=== PATIENT | male | born 1940 | race Caucasian/White ===

== ENCOUNTER 2016-11-14 08:43 | Day surgery (SDC) | payer MEDICARE ==
[~2016-11-14] VITALS: Ht 182.9 cm; Wt 73.9 kg
[~2016-11-14 08:43] MED LIST: AMLO5 PO; ASPI81TA82 PO; ATOR20TA PO; CALC667T PO; COMMODE 3:1; DOCU1CAP39 PO; NEUR100C PO; PHENYLEPH/NS 1000 MCG/10 ML SYR IV ONE; PROPOFOL 200 MG/20 ML AMP IV ONE; SHOWER/TUB CHAIR LG; SODIUM CHLOR 0.9% 250 ML INJ 500 ML IV ONE; TAMS0.4C67 PO; TRAZ100 PO; TRIPCAP PO; WALKER ROLLING; WHEELCHAIR RENTAL RA; Z.0.WALKERFRONT; [UNRECOGNIZED DRUG - SUPPLY]; ePHEDrine/NS 50 MG/5 ML SYR IV ONE
[2016-11-14] MEDS ORDERED: ATOR20TA15 PO (09:57)
[2016-11-14] MEDS ORDERED: TRIPCAP PO (09:57)
[2016-11-14] MEDS ORDERED: TRAZ100T4 PO (09:57)
[2016-11-14] MEDS ORDERED: ASPI1TAB69 PO (10:00)
[2016-11-14] MEDS ORDERED: GABA100C4 PO (10:00)
[2016-11-14] MEDS ORDERED: DOCU100C PO (10:00)
[2016-11-14] MEDS ORDERED: PHOS667C5 PO (10:00)
[2016-11-14] MEDS ORDERED: BENA25TA3 PO (10:00)
[2016-11-14 10:08] VITALS: BP 112/68; PULSE 64; RESP 20; TEMP 98; O2SAT 99
[2016-11-14] MEDS ORDERED: SODIUM CHLORIDE 0.9% INJ 100 ML ONE (10:33)
[2016-11-14] MEDS ORDERED: ceFAZolin INJ 1,000 MG VIAL ONE (10:33)
[2016-11-14] MEDS ORDERED: INSULIN HUMAN REGULAR 1,000 UNITS/10 ML VIAL SQ PRN (10:45)
[2016-11-14] MEDS ORDERED: METOPROLOL TARTRATE 25 MG TAB PO PRN (10:45)
[2016-11-14] MEDS ORDERED: SODIUM CHLORID 0.9% 500 ML IV SCH (10:45)
[2016-11-14] MEDS ORDERED: LACTATED RINGER'S 1000 ML IV SCH (10:45)
[2016-11-14 10:48] LABS: AUTOMATED NEUTROPHIL # 3.7 TH/MM3 (1.8-7.7); BASOPHIL # 0.1 TH/MM3 (0-0.2); BASOPHIL % 1.3 % (0.0-2.0); EOSINOPHIL # 0.4 TH/MM3 (0-0.4); EOSINOPHIL % 7.3 % (0.0-4.0); HEMATOCRIT 31.8 % (39.0-51.0); HEMO FLAGS DIFF FINAL; LYMPH % 12.5 % (9.0-44.0); LYMPHOCYTE # 0.7 TH/MM3 (1.0-4.8); MEAN CELL VOLUME 96.1 FL (80.0-100.0); MEAN CORPUSCULAR HEMOGLOBIN 32.6 PG (27.0-34.0); MEAN CORPUSCULAR HGB CONC 33.9 % (32.0-36.0); MONO % 16.3 % (0.0-8.0); NEUT % 62.6 % (16.0-70.0); PLATELET COUNT 427 TH/MM3 (150-450); RED BLOOD COUNT 3.31 MIL/MM3 (4.50-5.90); RED CELL DISTRIBUTION WIDTH 14.3 % (11.6-17.2)
[2016-11-14 11:03] LABS: BICARBONATE 28.1 MEQ/L (21.0-32.0); POTASSIUM 5.2 MEQ/L (3.5-5.1)
[2016-11-14] MEDS ORDERED: HEPARIN SODIUM - IV 10,000 UNITS/10 ML VIAL ONE (16:15)
[2016-11-14] MEDS ORDERED: PROTAMINE SULFATE 50 MG/5 ML VIAL ONE (16:15)
[2016-11-14] MEDS ORDERED: HEPARIN SODIUM - SQ 10,000 UNITS/ML VIAL ONE (16:15)
[2016-11-14] MEDS ORDERED: BUPIVACAINE/EPINEPHRINE 0.5% PF 10 ML VIAL INFIL ONE (17:02)
[2016-11-14] MEDS ORDERED: IOHEXOL 300 MG/ML 50 ML BTL (for RAD DIAG) ONE (17:26)
[2016-11-14] MEDS ORDERED: MIDAZOLAM HCL 2 MG/2 ML VIAL ONE (18:29)
[2016-11-14] MEDS ORDERED: *morphine SULFATE 8 MG/ML PERIprocedure ONLY ONE ×2 (18:55→19:14)
[2016-11-14] MEDS ORDERED: diphenhydrAMINE HCL 25 MG CAP PO PRN (19:00)
[2016-11-14] MEDS ORDERED: DOCUSATE SODIUM 100 MG CAP PO PRN (19:00)
[2016-11-14] MEDS ORDERED: traZODone HCL 100 MG TAB PO PRN (19:00)
[2016-11-14] MEDS ORDERED: GABAPENTIN 100 MG CAP PO PRN (19:00)
[2016-11-14] MEDS ORDERED: SODIUM NITROPRUSSIDE 50 MG/250 ML D5W IV SCH ×2 (19:15)
[2016-11-14] MEDS ORDERED: cloNIDine HCL 0.1 MG TAB PO PRN (19:15)
[2016-11-14] MEDS ORDERED: POTASSIUM CHLORIDE 20 MEQ CONTROLLED RELEASE TAB PO PRN (19:15)
[2016-11-14] MEDS ORDERED: SODIUM CHLOR 0.9% 250 ML IV PRN (19:15)
[2016-11-14] MEDS ORDERED: ZOLPIDEM TARTRATE 5 MG TAB PO PRN (19:15)
[2016-11-14] MEDS ORDERED: METOCLOPRAMIDE HCL 10 MG/2 ML VIAL IVS PRN (19:15)
[2016-11-14] MEDS ORDERED: LABETALOL HCL 100 MG/20 ML VIAL IVP PRN (19:15)
[2016-11-14] MEDS ORDERED: ENALAPRILAT 1.25 MG/ML VIAL IV PRN (19:15)
[2016-11-14] MEDS ORDERED: HOLD GLUCOPHAGE, GLUCOPHAGE XR, AND AVANDAMET XX PRN (19:15)
[2016-11-14] MEDS ORDERED: SODIUM CHLORIDE 5 ML FLUSH PRN IVF (19:15)
[2016-11-14] MEDS ORDERED: ATROPINE SULFATE 1 MG/ML VIAL IV PUSH PRN (19:15)
[2016-11-14] MEDS ORDERED: ONDANSETRON HCL 4 MG/2 ML VIAL IV PRN (19:15)
[2016-11-14] MEDS ORDERED: MORPHINE SULFATE 4 MG/ML INJ ONE (20:43)
[2016-11-14] MEDS: oxyCODONE/ACETAMINOPHEN 5 MG/325 MG TAB PO PRN (21:00)
[2016-11-14] MEDS ORDERED: ATORVASTATIN 20 MG TAB PO SCH (21:00)
[2016-11-14] MEDS: SODIUM CHLORIDE 5 ML FLUSH BID IVF SCH (21:00)
[2016-11-14 23:00] VITALS: BP 107/63; PULSE 69; RESP 16; TEMP 97.4; O2SAT 99
[2016-11-15] VITALS (15 sets, daily range): BP systolic 99–107; BP diastolic 51–63; PULSE 66–77; RESP 16–19; TEMP 97.9–98.3; O2SAT 96–99
[2016-11-15] MEDS: oxyCODONE/ACETAMINOPHEN 5 MG/325 MG TAB PO PRN ×2 (01:00→07:13)
--- NOTE | 2016-11-15 08:06 | EKG ---
Date Performed: 11/14/2016 Time Performed: 10:13:33 PTAGE: 76 years EKG: Sinus rhythm Left axis deviation Nonspecific intraventricular conduction delay ST-T wave changes which may be sec ondary to abnormalities of intraventricular conduction, hypertrophy or ischemia. The strain patter i n V6 is new from the old tracing. The intraventricular conduction delay is new from the prior davin g. ABNORMAL ECG PREVIOUS TRACING : 03/23/2016 12.59 DOCTOR: Tez Sutherland Interpretating Date/Time 11/15/2016 08:05:21
[2016-11-15] MEDS: CALCIUM ACETATE 667 MG CAP PO SCH ×2 (08:20→12:05)
[2016-11-15] MEDS: SODIUM CHLORIDE 5 ML FLUSH BID IVF SCH (08:21)
[2016-11-15] MEDS ORDERED: ASPIRIN EC 81 MG TABEC PO SCH (09:00)
[2016-11-15] MEDS ORDERED: NORC5TAB PO (14:57)
--- NOTE | 2016-11-21 20:13 | MP ---
cc: ANGIE TEE M.D., JAMES T. MD RUST, JAMES W. DP Corrected: 11/27/2016 DATE OF SURGERY: 11/14/2016 PREOPERATIVE DIAGNOSIS: Limb threatening left lower extremity ischemia - nonhealing left hallux nail avulsion. POSTOPERATIVE DIAGNOSIS: Limb threatening left lower extremity ischemia - nonhealing left hallux nail avulsion. OPERATIVE PROCEDURE PERFORMED: Aortofemoral arteriogram - CO2. SURGEON: Tripp Babcock M.D. [employer] [employer] TIER: HELENE Hernandez. ANESTHESIA: Local MAC. DESCRIPTION OF THE OPERATIVE PROCEDURE IN DETAIL: With the patient in the supine position and under IV sedation, the lower abdomen, both groins and thighs were prepped with Betadine and draped in a sterile fashion. Appropriate IV antibiotic prophylaxis was administered and following a protocol time-out, the skin and subcutaneous tissue overlying the proposed right common femoral access site was infiltrated with 0.5% Marcaine with epinephrine. Utilizing ultrasound guidance, an 18 gauge needle was inserted into the right mid common femoral lumen and a J-wire advanced under fluoroscopic guidance into the iliac artery. A 5-Stateless hemostatic sheath was deployed over the J-wire. An Advantage guidewire OMNI catheter combination was navigated into the subrenal aorta utilizing carbon dioxide as contrast, which was injected through the sheath side-arm in conjunction with digital C-arm fluoroscopic imaging, aortofemoral arteriogram was then accomplished. Findings were as follows: The distal aorta, both common internal, external iliac and common femoral arteries were widely patent. The iliac arteries were extremely tortuous, both common iliac arteries creating a 180 degree angulations midportions. An attempt was made to navigate the angled Glidewire into the left iliac artery but due to the extreme tortuosity, successful navigation was not possible. Thus, the skin and subcutaneous tissue overlying the left common femoral artery was infiltrated with 0.5% Marcaine with epinephrine. Utilizing ultrasound guidance, an 18 gauge needle was inserted into the left mid common femoral lumen, antegrade approach. A J-wire was navigated into the SFA and under fluoroscopic guidance and a 5-Stateless hemostatic sheath deployed over the J-wire. Again utilizing CO2 as contrast, complete angiographic imaging of the left lower extremity was then completed. This confirmed a widely patent common, profunda and superficial femoral artery. The popliteal artery was relatively non-diseased at the above-knee level but flush occluded at the knee joint level. The Advantage guidewire was navigated into the popliteal artery and utilizing a Quick-Cross catheter for support, a brief attempt was made to navigate through the flush popliteal occlusion. Selective angiography with the Quick-Cross position within the above-knee popliteal revealed no significant reconstitution of any of the tibial arteries below the knee joint level. Also, delayed films failed to elucidate a patent pedal artery that would serve as a potential open revascularization bypass target. Both sheaths were removed and hemostasis achieved with compression. The patient returned to the recovery room in stable condition having tolerated the procedure well. 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 There are no options were either endovascular or open surgical revascularization. We will have to discus major amputation with him. MD CECIL Alvares/EMRE /4:09 PM /8:00 PM JOSUE
== END 2016-11-15 16:45 | disposition home or self-care (01) ==
LOC: HCVO 08:43 → HCIN 23:52 → HCVO 11-15 16:45
PROVIDERS: ATTEND Surgery Vascular Surgery
DX: I99.8 Other disorder of circulatory system (principal); R94.31 Abnormal electrocardiogram [ECG] [EKG]
CPT/HCPCS: 01270; 37224; 75710; 76937; 80048; 85025; 93005; C1769; C1887; J0690; J1644; J2250; J2270; J2370; J2720; J3010; J7040; J7050; Q9967